=== PATIENT | female | born 1975 | race Caucasian/White ===

== ENCOUNTER 2016-02-26 08:45 | Emergency (ER) | payer BC ==
--- NOTE | 2016-02-26 09:27 | ED.PDOC ---
History of Present Illness - General Chief Complaint: Respiratory Problem Stated Complaint: cough fever sore throat Time Seen by Provider: 02/26/16 08:53 Source: patient, RN notes reviewed, Vital Signs reviewed Exam Limitations: no limitations - History of Present Illness Comments: Had productive cough constant for 5 days with nasal congestion and sorethroat since yesterday several co workers with same symptoms denies chills fever. Took OTC cough cold medications. Timing/Duration: other - 5 days ago Cough Quality/Degree: productive cough - clear mucus Possible Cause: no prior episodes Improving Factors: nothing Worsening Factors: nothing Associated Symptoms: nasal congestion, sore throat Respiratory Risk Factors: exposure to illness Allergies/Adverse Reactions: Allergies NO KNOWN ALLERGY Allergy (Verified 02/26/16 08:59) Home Medications: Ambulatory Orders Citalopram Hydrobromide 20 mg PO DAILY 05/22/15 Cyclobenzaprine HCl 10 mg PO DAILY 05/22/15 Fluticasone Prop 0.05% Nasal [Flonase Nasal [place]] 1 ea INH BID 05/22/15 Ketotifen Fumarate (Ophth) [Alaway] 0.025 % OP BID 05/22/15 Linaclotide [Linzess] 290 mcg PO DAILY 05/22/15 Lisinopril & Hydrochlorothiazi [Lisinopril/Hctz 10-12.5 mg] 1 tab PO DAILY 05/21 Metformin HCl 1,000 mg PO BID 05/22/15 Multiple Vitamin [Multi Vitamin Daily] 1 ea PO DAILY 05/22/15 Naproxen Sodium [Anaprox DS] 550 mg PO BID PRN #14 tab 05/22/15 Olopatadine HCl 2 puff INH BID 05/22/15 Omeprazole 20 mg PO DAILY 05/22/15 Simvastatin 40 mg PO DAILY 05/22/15 Albuterol Inhaler [Ventolin Hfa Inhaler] 108 mcg IN QID PRN #1 inh 02/26/16 Azithromycin [Zithromax Z-Alton] 1 ea PO DAILY #1 pack 02/26/16 Dextromet/Guaifenesin 600/30 T [Mucinex Dm 600/30MG] 1 ea PO BID #30 tab diphenhydrAMINE HCL [Benadryl] 25 mg PO TID #60 cap 02/26/16 Review of Systems - Review of Systems Constitutional: States: no symptoms reported EENTM: States: see HPI, nose congestion Respiratory: States: see HPI, cough Cardiology: States: no symptoms reported Gastrointestinal/Abdominal: States: no symptoms reported Genitourinary: States: no symptoms reported Musculoskeletal: States: no symptoms reported Skin: States: no symptoms reported Neurological: States: no symptoms reported Endocrine: States: no symptoms reported Past Medical History (General) - Patient Medical History Hx Seizures: No Hx Stroke: No Hx Dementia: No Hx Asthma: No Hx of COPD: No Hx Cardiac Disorders: No Hx Congestive Heart Failure: No Hx Pacemaker: No Hx Hypertension: Yes Hx Thyroid Disease: No Hx Diabetes: Yes Hx Gastroesophageal Reflux: Yes Hx Renal Disease: No Hx Cancer: No Hx of HIV: No Hx Hepatitis C: No Hx MRSA: No Surgical History: appendectomy, cholecystectomy, other - breast reduction - Vaccination History Hx Tetanus, Diphtheria Vaccination: No Hx Influenza Vaccination: Yes Hx Pneumococcal Vaccination: No Immunizations Up to Date: No - Social History Hx Tobacco Use: No Hx Chewing Tobacco Use: No Hx Alcohol Use: No Hx Substance Use: No Hx Substance Use Treatment: No Hx Depression: No Hx Physical Abuse: No Hx Emotional Abuse: No Hx Suspected Abuse: No - Activities of Daily Living Patient Lives Alone: No - lives with family - Female History Patient is a Female of Child Bearing Age (10 -59 yrs old): No Patient : No - HYST - Triage Comment ED Triage Comment: hyst Family Medical History - Family History Mother Living Status: Hx Family Congestive Heart Failure: Yes Hx Family Hypertension: Yes Hx Family Diabetes: Yes Hx Family Cancer: Yes Hx Family;Other: COPD Father Living Status: Still Living Hx Family Congestive Heart Failure: Yes Hx Family Hypertension: Yes Hx Cardiac Disease: Yes Hx Family Diabetes: Yes Hx Family;Other: paranoid schizo Physical Exam - Physical Exam General Appearance: Alert, No apparent distress ENT Exam: normal ENT inspection, hearing grossly normal, TMs normal, nasal congestion Neck: non-tender, full range of motion, supple Respiratory: chest non-tender, lungs clear, normal breath sounds, no respiratory distress Cardiovascular/Chest: normal peripheral pulses, regular rate, rhythm, no edema Gastrointestinal/Abdominal: normal bowel sounds, non tender, soft Extremity: normal range of motion, non-tender, normal inspection Neurologic: alert, normal mood/affect, oriented x 3 Skin Exam: normal color, warm/dry Progress - Results/Orders Results/Orders: 02/26/16 09:32 SVN/Updraft Therapy .ONCE 02/27/16 09:00 Updrafts Daily Laboratory Results WBC 12.2 K/mm3 (4.8-10.8) H 02/26/16 09:40 RBC 4.83 M/mm3 (4.20-5.40) 02/26/16 09:40 Hgb 13.9 gm/dL (12.0-16.0) 02/26/16 09:40 Hct 41.7 % (36.0-47.0) 02/26/16 09:40 MCV 86.5 fl (81.0-99.0) 02/26/16 09:40 MCH 28.8 pg (27.0-31.0) 02/26/16 09:40 MCHC 33.3 g/dL (33.0-37.0) 02/26/16 09:40 RDW 13.3 % (11.5-14.5) 02/26/16 09:40 Plt Count 387 K/mm3 (130-400) 02/26/16 09:40 MPV 7.8 fl (7.40-10.4) 02/26/16 09:40 Absolute Neuts (auto) 8.70 K/uL (1.8-6.8) H 02/26/16 09:40 Absolute Lymphs (auto) 2.40 K/uL (1.0-3.4) 02/26/16 09:40 Absolute Monos (auto) 0.70 K/uL (0.2-0.8) 02/26/16 09:40 Absolute Eos (auto) 0.30 K/uL (0.0-0.4) 02/26/16 09:40 Absolute Basos (auto) 0.10 K/uL (0.0-0.1) 02/26/16 09:40 Neutrophils % 70.9 % (42.0-78.0) 02/26/16 09:40 Lymphocytes % 19.9 % (20.0-50.0) L 02/26/16 09:40 Monocytes % 5.9 % (2.0-9.0) 02/26/16 09:40 Eosinophils % 2.5 % (1.0-5.0) 02/26/16 09:40 Basophils % 0.8 % (0.0-2.0) 02/26/16 09:40 - EKG/XRAY/CT XRAY: chest - no acute abnormality Departure - Departure Clinical Impression: Bronchitis, acute Qualifiers: Bronchitis organism: unspecified organism Qualifier Code: (J20.9) Acute bronchitis, unspecified Time of Disposition: 11:57 Disposition: Discharge to Home or Self Care Condition: Good Departure Forms: ED Discharge - Pt. Copy, Patient Portal Self Enrollment Instructions: DI for Acute Bronchitis Prescriptions: diphenhydrAMINE HCL [Benadryl] 25 mg PO TID #60 cap Dextromet/Guaifenesin 600/30 T [Mucinex Dm 600/30MG] 1 ea PO BID #30 tab Albuterol Inhaler [Ventolin Hfa Inhaler] 108 mcg IN QID PRN #1 inh PRN Reason: Cough Azithromycin [Zithromax Z-[place]] 1 ea PO DAILY #1 pack Home Medications: Ambulatory Orders Citalopram Hydrobromide 20 mg PO DAILY 05/22/15 Cyclobenzaprine HCl 10 mg PO DAILY 05/22/15 Fluticasone Prop 0.05% Nasal [Flonase Nasal [place]] 1 ea INH BID 05/22/15 Ketotifen Fumarate (Ophth) [[place]] 0.025 % OP BID 05/22/15 Linaclotide [Linzess] 290 mcg PO DAILY 05/22/15 Lisinopril & Hydrochlorothiazi [Lisinopril/Hctz 10-12.5 mg] 1 tab PO DAILY 05/21 Metformin HCl 1,000 mg PO BID 05/22/15 Multiple Vitamin [Multi Vitamin Daily] 1 ea PO DAILY 05/22/15 Naproxen Sodium [Anaprox DS] 550 mg PO BID PRN #14 tab 05/22/15 Olopatadine HCl 2 puff INH BID 05/22/15 Omeprazole 20 mg PO DAILY 05/22/15 Simvastatin 40 mg PO DAILY 05/22/15 Albuterol Inhaler [Ventolin Hfa Inhaler] 108 mcg IN QID PRN #1 inh 02/26/16 Azithromycin [Zithromax Z-[place]] 1 ea PO DAILY #1 pack 02/26/16 Dextromet/Guaifenesin 600/30 T [Mucinex Dm 600/30MG] 1 ea PO BID #30 tab diphenhydrAMINE HCL [Benadryl] 25 mg PO TID #60 cap 02/26/16 Additional Instructions: PLEASE EXCUSE FROM WORK DUE TO ILLNESS 02/25-06/2016 RETURN TO WORK 03/01/2016 without restrictions
[2016-02-26] MEDS ORDERED: IPRATROPIUM/ALBUTEROL 3 ML VIAL NEB ONE (09:31)
[2016-02-26] MEDS ORDERED: BENZONATATE PERLES 100 MG CAP PO ONE (09:32)
[2016-02-26] MEDS ORDERED: diphenhydrAMINE HCL 25 MG CAP PO ONE (09:33)
--- NOTE | 2016-02-26 10:24 | RAD ---
EXAM DESCRIPTION: X-RAY CHEST- TWO VIEWS CLINICAL HISTORY: Cough COMPARISON: None TECHNIQUE: 2.0 views of the chest FINDINGS: There are no discrete air space infiltrates, pneumothoraces or pleural effusions. The pulmonary vascularity is normal. The cardiomediastinal silhouette is unremarkable. IMPRESSION: There are no acute lung parenchymal findings. Electronically signed by: Isauro Templeton MD 02/26/2016 10:21
[2016-02-26 12:22] VITALS: BP 138/89; TEMP 98.9; O2SAT 99
== END 2016-02-26 12:15 | disposition home or self-care (01) ==
LOC: ER 08:45
DX: J20.9 Acute bronchitis, unspecified (principal); E11.9 Type 2 diabetes mellitus without complications; I10 Essential (primary) hypertension; K21.9 Gastro-esophageal reflux disease without esophagitis; Z79.899 Other long term (current) drug therapy; Z82.49 Family history of ischemic heart disease and other diseases of the circulatory system; Z83.3 Family history of diabetes mellitus; Z80.9 Family history of malignant neoplasm, unspecified; Z83.6 Family history of other diseases of the respiratory system
CPT/HCPCS: 36415; 71020; 85025; 94640; J7620; Q0163

== ENCOUNTER 2016-06-17 20:41 | Emergency (ER) | payer OTHER, BC ==
--- NOTE | 2016-06-17 21:38 | ED.PDOC ---
History of Present Illness - General Chief Complaint: Upper Extremity Injury Stated Complaint: LEFT WRIST INJURY AT WORK Time Seen by Provider: 06/17/16 21:21 Source: patient, RN notes reviewed, Vital Signs reviewed Exam Limitations: no limitations - History of Present Illness Initial Comments: While at work she had a heavy box of laundry detergent fall and hit her volar wrist. She is having wrist pain and numbness of all her fingers. Occurred: just prior to arrival Pain - Upper Extremity: moderate: Wrist, left Method of Injury: direct blow Improving Factors: cold therapy Worsening Factors: movement Allergies/Adverse Reactions: Allergies NO KNOWN ALLERGY Allergy (Verified 02/26/16 08:59) Home Medications: Ambulatory Orders Citalopram Hydrobromide 20 mg PO DAILY 05/22/15 Cyclobenzaprine HCl 10 mg PO DAILY 05/22/15 Fluticasone Prop 0.05% Nasal [Flonase Nasal [place]] 1 ea INH BID 05/22/15 Ketotifen Fumarate (Ophth) [[place]] 0.025 % OP BID 05/22/15 Linaclotide [Linzess] 290 mcg PO DAILY 05/22/15 Lisinopril & Hydrochlorothiazi [Lisinopril/Hctz 10-12.5 mg] 1 tab PO DAILY 05/21 Metformin HCl 1,000 mg PO BID 05/22/15 Multiple Vitamin [Multi Vitamin Daily] 1 ea PO DAILY 05/22/15 Naproxen Sodium [Anaprox DS] 550 mg PO BID PRN #14 tab 05/22/15 Olopatadine HCl 2 puff INH BID 05/22/15 Omeprazole 20 mg PO DAILY 05/22/15 Simvastatin 40 mg PO DAILY 05/22/15 Albuterol Inhaler [Ventolin Hfa Inhaler] 108 mcg IN QID PRN #1 inh 02/26/16 Azithromycin [Zithromax Z-[place]] 1 ea PO DAILY #1 pack 02/26/16 Dextromet/Guaifenesin 600/30 T [Mucinex Dm 600/30MG] 1 ea PO BID #30 tab diphenhydrAMINE HCL [Benadryl] 25 mg PO TID #60 cap 02/26/16 Acetaminophen W/ Codeine [Tylenol W/ CODEINE #3] 1 ea PO Q4HR PRN #15 06/17/16 Review of Systems - Review of Systems Constitutional: States: no symptoms reported Musculoskeletal: States: see HPI, joint pain - L wrist, joint swelling Skin: States: no symptoms reported Neurological: States: numbness, tingling - L fingers Past Medical History (General) - Patient Medical History Hx Seizures: No Hx Stroke: No Hx Dementia: No Hx Asthma: No Hx of COPD: No Hx Cardiac Disorders: No Hx Congestive Heart Failure: No Hx Pacemaker: No Hx Hypertension: Yes Hx Thyroid Disease: No Hx Diabetes: Yes Hx Gastroesophageal Reflux: Yes Hx Renal Disease: No Hx Cancer: No Hx of HIV: No Hx Hepatitis C: No Hx MRSA: No Surgical History: cholecystectomy, Hysterectomy - Vaccination History Hx Tetanus, Diphtheria Vaccination: No Hx Influenza Vaccination: Yes Hx Pneumococcal Vaccination: No - Social History Hx Tobacco Use: No Hx Chewing Tobacco Use: No Hx Alcohol Use: No Hx Substance Use: No Hx Substance Use Treatment: No Hx Depression: No Hx Physical Abuse: No Hx Emotional Abuse: No Hx Suspected Abuse: No - Female History Patient is a Female of Child Bearing Age (10 -59 yrs old): No Patient : No - HYST Family Medical History - Family History Mother Living Status: Hx Family Congestive Heart Failure: Yes Hx Family Hypertension: Yes Hx Family Diabetes: Yes Hx Family Cancer: Yes Hx Family;Other: COPD Father Living Status: Still Living Hx Family Congestive Heart Failure: Yes Hx Family Hypertension: Yes Hx Cardiac Disease: Yes Hx Family Diabetes: Yes Hx Family;Other: paranoid schizo Physical Exam - Physical Exam General Appearance: Alert, Comfortable, No apparent distress, Well Developed, Well Groomed, Well Hydrated, Well Nourished Cardiovascular/Respiratory: normal peripheral pulses - with brisk capillary refill in all fingers. Elbow/Forearm Exam: normal inspection, non-tender, no evidence of injury, normal ROM Wrist Exam: bone tenderness - L volar wrist, limited ROM - due to pain, pain, soft tissue tenderness, swelling Hand Exam: non-tender, no evidence of injury, normal ROM Neuro/Tendon: normal motor functions, normal tendon functions, sensory deficit - decreased sensation all fingers on L hand with Thumb being the worst. Mental Status: alert, oriented x 3 Skin Exam: normal color, warm/dry Comments: Vital Signs - 24 hr 06/17/16 20:59 Temperature 99.0 F Pulse Rate [ 101 H MONITOR] Respiratory 20 Rate Blood Pressure 118/86 [RA] O2 Sat by Pulse 96 Oximetry Progress - Progress Progress: 06/17/16 22:01 Discussed results and symptoms with patient. No fracture, just a contusion with nerve injury. Will splint and have her follow up with PCP in 3-5 days. 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 Copy, Patient Portal Self Enrollment Instructions: DI for Contusion Diet: resume usual diet Activity: no pushing/pulling with affected limb Referrals: Kika Mac FNP [Primary Care Provider] - 1-5 Days Prescriptions: Acetaminophen W/ Codeine [Tylenol W/ CODEINE #3] 1 ea PO Q4HR PRN #15 PRN Reason: Moderate To Severe Pain Home Medications: Ambulatory Orders Citalopram Hydrobromide 20 mg PO DAILY 05/22/15 Cyclobenzaprine HCl 10 mg PO DAILY 05/22/15 Fluticasone Prop 0.05% Nasal [Flonase Nasal [place]] 1 ea INH BID 05/22/15 Ketotifen Fumarate (Ophth) [[place]] 0.025 % OP BID 05/22/15 Linaclotide [Linzess] 290 mcg PO DAILY 05/22/15 Lisinopril & Hydrochlorothiazi [Lisinopril/Hctz 10-12.5 mg] 1 tab PO DAILY 05/21 Metformin HCl 1,000 mg PO BID 05/22/15 Multiple Vitamin [Multi Vitamin Daily] 1 ea PO DAILY 05/22/15 Naproxen Sodium [Anaprox DS] 550 mg PO BID PRN #14 tab 05/22/15 Olopatadine HCl 2 puff INH BID 05/22/15 Omeprazole 20 mg PO DAILY 05/22/15 Simvastatin 40 mg PO DAILY 05/22/15 Albuterol Inhaler [Ventolin Hfa Inhaler] 108 mcg IN QID PRN #1 inh 02/26/16 Azithromycin [Zithromax Z-[place]] 1 ea PO DAILY #1 pack 02/26/16 Dextromet/Guaifenesin 600/30 T [Mucinex Dm 600/30MG] 1 ea PO BID #30 tab diphenhydrAMINE HCL [Benadryl] 25 mg PO TID #60 cap 02/26/16 Acetaminophen W/ Codeine [Tylenol W/ CODEINE #3] 1 ea PO Q4HR PRN #15 06/17/16
--- NOTE | 2016-06-17 21:55 | RAD ---
EXAM: Wrist,Left 3 Views CLINICAL INDICATION: 41-year-old female with pain status post trip flow on volar wrist. TECHNIQUE: Three views LEFT wrist were obtained in AP, lateral and oblique projections COMPARISON: None. FINDINGS: There is no fracture or dislocation. The joint spaces are preserved. No soft tissue abnormalities are seen. IMPRESSION: No acute radiographic abnormality. Electronically signed by: Samantha Bonilla MD 06/17/2016 9:54 PM CDT
[2016-06-17] MEDS: HYDROCOD/APAP 5/325 (ER DISP) #3 TAB PO ONE (22:15)
[2016-06-17] MEDS: HYDROcodone 5MG/APAP 325MG 1 EA TAB PO ONE (22:15)
[2016-06-17 22:24] VITALS: BP 136/84; TEMP 98.4; O2SAT 98
== END 2016-06-17 21:55 | disposition home or self-care (01) ==
LOC: ER 20:41
DX: S60.212A Contusion of left wrist, initial encounter (principal); S64.12XA Injury of median nerve at wrist and hand level of left arm, initial encounter; S64.02XA Injury of ulnar nerve at wrist and hand level of left arm, initial encounter; I10 Essential (primary) hypertension; K21.9 Gastro-esophageal reflux disease without esophagitis; Z79.899 Other long term (current) drug therapy; W20.8XXA Other cause of strike by thrown, projected or falling object, initial encounter; Y99.0 Civilian activity done for income or pay

== ENCOUNTER → 2016-08-09 | Outpatient (CLI) | payer BC | END | disposition home or self-care (01) | LOC: LAB.O 11:26 | PROVIDERS: ATTEND Nurse Practitioner Family | DX: E78.5 Hyperlipidemia, unspecified (principal); I10 Essential (primary) hypertension; E11.9 Type 2 diabetes mellitus without complications ==

== ENCOUNTER 2017-03-17 13:18 | Emergency (ER) | payer SELFPAY ==
--- NOTE | 2017-03-17 13:51 | ED.PDOC ---
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 Associated Symptoms: sore throat Review of Systems - Review of Systems Constitutional: States: see HPI, fever EENTM: States: see HPI, throat pain Respiratory: States: no symptoms reported Cardiology: States: no symptoms reported Gastrointestinal/Abdominal: States: no symptoms reported All other Systems: Reviewed and Negative, No Change from Baseline Past Medical History (General) - Patient Medical History Hx Seizures: No Hx Stroke: No Hx Dementia: No Hx Asthma: No Hx of COPD: No Hx Cardiac Disorders: No Hx Congestive Heart Failure: No Hx Pacemaker: No Hx Hypertension: Yes Hx Thyroid Disease: No Hx Diabetes: Yes Hx Gastroesophageal Reflux: No Hx Renal Disease: No Hx Cancer: No Hx of HIV: No Hx Hepatitis C: No Hx MRSA: No Surgical History: noncontributory, cholecystectomy, other - hysterectomy,breast reduction - Vaccination History Hx Tetanus, Diphtheria Vaccination: No Hx Influenza Vaccination: Yes Hx Pneumococcal Vaccination: No Immunizations Up to Date: Yes - Social History Hx Tobacco Use: No Hx Chewing Tobacco Use: No Hx Alcohol Use: Yes - occasional Hx Substance Use: No Hx Substance Use Treatment: No Hx Depression: No Feels Threatened In Home Enviroment: No Feels Threatened In a Relationship: No Hx Physical Abuse: No Hx Emotional Abuse: No Hx Suspected Abuse: No - Female History Patient is a Female of Child Bearing Age (10 -59 yrs old): Yes Patient : No Family Medical History - Family History Mother Living Status: Hx Family Congestive Heart Failure: Yes Hx Family Hypertension: Yes Hx Family Diabetes: Yes Hx Family Cancer: Yes Hx Family;Other: COPD Father Living Status: Hx Family Congestive Heart Failure: Yes Hx Family Hypertension: Yes Hx Cardiac Disease: Yes Hx Family Diabetes: Yes Hx Family;Other: paranoid schizo Physical Exam - Physical Exam General Appearance: Alert, Comfortable, No apparent distress Eye Exam: bilateral normal ENT Exam: pharyngeal erythema Neck: non-tender, supple, trachea midline Respiratory: lungs clear, normal breath sounds Cardiovascular/Chest: regular rate, rhythm, no murmur Gastrointestinal/Abdominal: non tender, soft, no organomegaly Extremity: no pedal edema, no calf tenderness Neurologic: alert, oriented x 3 Skin Exam: normal color, warm/dry Lymphatic: no adenopathy Progress - Progress Progress: 03/17/17 13:57 Last Vital Signs Temp 100.2 F H 03/17/17 13:34 Pulse 104 H 03/17/17 13:34 Resp 18 03/17/17 13:34 BP 142/96 03/17/17 13:34 Pulse Ox 97 03/17/17 13:34 03/17/17 14:50 Flu a/b and strep throat test-negative Departure - Departure Clinical Impression: Nasopharyngitis acute Time of Disposition: 14:46 Disposition: Discharge to Home or Self Care Condition: Good Departure Forms: ED Discharge - Pt. Copy, Patient Portal Self Enrollment Instructions: DI for Common Cold, Common Cold Referrals: Kika Mac PATIENT SERVICE ASSOCIATE [Primary Care Provider] - 1-2 Weeks Home Medications: Ambulatory Orders Citalopram Hydrobromide 20 mg PO DAILY 05/22/15 Cyclobenzaprine HCl 10 mg PO DAILY 05/22/15 Fluticasone Prop 0.05% Nasal [Flonase Nasal [place]] 1 ea INH BID 05/22/15 Ketotifen Fumarate (Ophth) [[place]] 0.025 % OP BID 05/22/15 Linaclotide [Linzess] 290 mcg PO DAILY 05/22/15 Lisinopril & Hydrochlorothiazi [Lisinopril/Hctz 10-12.5 mg] 1 tab PO DAILY 05/21 Metformin HCl 1,000 mg PO BID 05/22/15 Multiple Vitamin [Multi Vitamin Daily] 1 ea PO DAILY 05/22/15 Naproxen Sodium [Anaprox DS] 550 mg PO BID PRN #14 tab 05/22/15 Olopatadine HCl 2 puff INH BID 05/22/15 Omeprazole 20 mg PO DAILY 05/22/15 Simvastatin 40 mg PO DAILY 05/22/15 Albuterol Inhaler [Ventolin Hfa Inhaler] 108 mcg IN QID PRN #1 inh 02/26/16 Azithromycin [Zithromax Z-[place]] 1 ea PO DAILY #1 pack 02/26/16 Dextromet/Guaifenesin 600/30 T [Mucinex Dm 600/30MG] 1 ea PO BID #30 tab diphenhydrAMINE HCL [Benadryl] 25 mg PO TID #60 cap 02/26/16 Acetaminophen W/ Codeine [Tylenol W/ CODEINE #3] 1 ea PO Q4HR PRN #15 06/17/16 Additional Instructions: ALEVE 1-2 tablet am/pm for pain Drink extra fluids Nasal Saline spray as needed for nasal irrigation
--- NOTE | 2017-03-17 14:20 | RAD ---
EXAM DESCRIPTION: Chest,1 View CLINICAL HISTORY: cough COMPARISON: February 26, 2016 IMPRESSION: Single AP portable upright view of the chest shows cardiac silhouette and pulmonary vasculature to be within normal limits. Lungs are normally aerated and clear. No obvious pleural effusion or pneumothorax is seen. Electronically signed by: Orville Witt MD 03/17/2017 2:19 PM [facility]
[2017-03-17 15:17] VITALS: BP 112/83; TEMP 101; O2SAT 99
== END 2017-03-17 15:16 | disposition home or self-care (01) ==
LOC: ER 13:18
DX: J00 Acute nasopharyngitis [common cold] (principal); I10 Essential (primary) hypertension; E11.9 Type 2 diabetes mellitus without complications

== ENCOUNTER → 2017-06-04 | Outpatient (CLI) | payer OTHER | LOC: YCFC.O 11:19 | PROVIDERS: ATTEND Nurse Practitioner Family | DX: I10 Essential (primary) hypertension (principal); E11.9 Type 2 diabetes mellitus without complications; E78.5 Hyperlipidemia, unspecified ==

== ENCOUNTER → 2018-05-21 | Outpatient (CLI) | payer OTHER | LOC: LAB.O 09:50 | PROVIDERS: ATTEND Nurse Practitioner Family | DX: I10 Essential (primary) hypertension (principal); E11.9 Type 2 diabetes mellitus without complications; E78.5 Hyperlipidemia, unspecified; E53.8 Deficiency of other specified B group vitamins ==

== ENCOUNTER → 2019-01-11 | Outpatient (CLI) | payer OTHER ==
--- NOTE | 2019-01-12 08:21 | RAD ---
EXAM DESCRIPTION: Hip x-ray,Left 2 Views CLINICAL HISTORY: 43 years, Female, PAIN IN LEFT HIP COMPARISON: None TECHNIQUE: AP and frog leg lateral views of the hip FINDINGS: 2 views of the left hip reveal no fracture or dislocation. No lytic bone lesion. Mild degenerative changes in the inferior left SI joint. Calcifications in the pelvis thought to be vascular. IMPRESSION: Negative for fracture or dislocation. Electronically signed by: Jesus Rivera MD 01/12/2019 8:19 AM [facility]
--- NOTE | 2019-01-12 09:35 | RAD ---
EXAM DESCRIPTION: Pelvis: CR/DR/XR CLINICAL HISTORY: PAIN IN LEFT HIP COMPARISON: None Available. TECHNIQUE: One view AP pelvis. FINDINGS: No fracture dislocation. Bone density. Joint Spaces are maintained. A density in the bilateral SI joint spaces. Minimal irregularity of the pubic symphysis. No abnormal radiodense objects in the soft tissues or joint spaces. IMPRESSION: No pelvic bone fracture no hip joint dislocation. 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 Electronically signed by: Kvng Villavicencio MD 01/12/2019 9:33 AM [facility]
== END ==
LOC: RAD 13:18
PROVIDERS: ATTEND Nurse Practitioner
DX: M46.98 Unspecified inflammatory spondylopathy, sacral and sacrococcygeal region (principal)

== ENCOUNTER → 2019-07-20 | Outpatient (CLI) | payer OTHER ==
--- NOTE | 2019-07-21 13:51 | MAM ---
EXAM DESCRIPTION: 3D Screening BILATERAL : Digital Mammography. CLINICAL HISTORY: 44 years Female ANNUAL SCREENING . No complaints. No personal or family history of breast cancer. Menarche age 11. Childbirth age 16. Premenopausal. No HRT. Lifetime risk of developing breast cancer (Tyrer-Cuzick model)(%): 7.0. COMPARISON: 2-D digital screening bilateral mammography June 2014. No prior reports available. TECHNIQUE: Bilateral CC and MLO projection full-field images, digital tomosynthesis mammographic technique. Bilateral digital 2-D full-field MLO images. CAD available for 2-D images. FINDINGS: The breast parenchymal density pattern is: Scattered areas of fibroglandular density. No skin thickening or nipple retraction. Large coarse calcification with surrounding breast tissue density and minimal architectural distortion again noted in the posterior third of the left breast lower outer quadrant most likely related to prior trauma or procedure with fat necrosis. No interval change. Axillary lymph nodes. Decreasing architectural distortion upper outer quadrant posterior third right breast. Solitary microcalcifications. No new focal, stellate mass or density, focal asymmetry , and no suspicious microcalcifications . IMPRESSION: Benign exam. BIRAD CATEGORY: 2 BENIGN FINDINGS. RECOMMENDATIONS: FOLLOW UP: Routine digital bilateral mammographic screening, one year interval from June 2019. Written communication explaining the IMPRESSION and follow-up, will be mailed to the patient and referring health care provider. According to the [employer], yearly mammograms are recommended starting at age 40 and continuing as long as a woman is in good health. Any breast change noted on a breast self-exam should be reported promptly to the patient's healthcare provider. Breast MRI is recommended for women with an approximately 20-25% or greater lifetime risk of breast cancer, including women with a strong family history of breast or ovarian cancer and women who have been treated for Hodgkin's disease. A negative mammographic report should not delay tissue diagnosis in patients with significant clinical history or physical findings. Extremely dense breast tissue limits the sensitivity of digital mammography. Electronically signed by: Kvng Villavicencio MD 07/21/2019 1:49 PM CDT
== END ==
LOC: MAMMO 11:11
PROVIDERS: ATTEND Family Medicine
DX: Z12.31 Encounter for screening mammogram for malignant neoplasm of breast (principal)

== ENCOUNTER → 2019-09-14 | Outpatient (CLI) | payer OTHER | LOC: YCFC.O 12:55 | PROVIDERS: ATTEND Family Medicine | DX: E11.9 Type 2 diabetes mellitus without complications (principal); I10 Essential (primary) hypertension; E78.5 Hyperlipidemia, unspecified; E53.8 Deficiency of other specified B group vitamins ==

== ENCOUNTER → 2019-10-06 | Outpatient (CLI) | payer OTHER | LOC: YCFC.O 10:42 | PROVIDERS: ATTEND Family Medicine | DX: L98.9 Disorder of the skin and subcutaneous tissue, unspecified (principal) ==

== ENCOUNTER → 2019-11-05 | Outpatient (CLI) | payer OTHER ==
--- NOTE | 2019-11-06 07:13 | RAD ---
EXAM DESCRIPTION: Abdomen Lat/Decubitus CLINICAL HISTORY: 44 years Female, ABDOMINAL BLOATING COMPARISON: None. Findings: Four view(s)/radiograph(s) Location: abdomen Nonobstructive bowel gas pattern. No suspicious calcification. No acute osseous abnormalities. Soft tissues are unremarkable. Large stool volume. No free air. Cholecystectomy. Visualized lung bases are clear. IMPRESSION: Nonobstructive bowel gas pattern. Electronically signed by: Jerman Best MD 11/06/2019 6:53 AM CDT
== END ==
LOC: RAD 08:58
PROVIDERS: ATTEND Family Medicine
DX: R14.0 Abdominal distension (gaseous) (principal)

== ENCOUNTER → 2020-03-13 | Outpatient (CLI) | payer OTHER ==
--- NOTE | 2020-03-13 13:04 | RAD ---
EXAM: Knee,Left Complete INDICATION: 45 years Female, EFFUSION, UNSPECIFIED KNEE COMPARISON: None available FINDINGS: 4 views of the left knee were performed. No fracture or dislocation. No destructive osseous lesion. Mild degenerative change in the left knee with joint space narrowing and mild subchondral sclerosis. No apparent subchondral cystic change. No periosteal reaction or osseous erosions. Moderate suprapatellar joint effusion. No other gross soft tissue abnormality is identified. IMPRESSION: Mild degenerative change in the left knee with moderate suprapatellar joint effusion. Electronically signed by: Michelle Garnett MD 03/13/2020 1:03 PM [facility]
== END ==
LOC: YCFC.O 08:29
PROVIDERS: ATTEND Family Medicine
DX: M25.469 Effusion, unspecified knee (principal); M17.12 Unilateral primary osteoarthritis, left knee

== ENCOUNTER 2020-03-30 07:45 | Day surgery (SDC) | payer OTHER ==
[~2020-03-30 07:45] MED LIST: LACTATED RINGERS 1,000 ML ONE; LIDOCAINE 1% 10 ML VIAL INJ ONE; PROPOFOL 200 MG/20 ML VIAL IV ONE
[2020-03-30] MEDS ORDERED: LACTATED RINGERS 1,000 ML IVS ONE (08:05)
[2020-03-30 09:59] VITALS: BP 118/72; TEMP 97.9; O2SAT 99
--- NOTE | 2020-04-14 13:32 | OP ---
DATE OF PROCEDURE: 03/30/20 PREOPERATIVE DIAGNOSIS: 1. Family history of colon cancer. POSTOPERATIVE DIAGNOSIS: 1. Single polyp in the cecum. PROCEDURE: 1. Colonoscopy. SURGEON: Anand Lee MD PROCEDURE: After informed consent, in lateral position, general anesthesia was induced. Digital rectal exam was normal. The colonoscope was inserted and then passed with minimal difficulty to the cecum as identified by landmarks. There was a single polyp in the cecum. This was approximately 2 mm polyp. It was completely excised with no evidence of bleeding. The remainder of the exam was normal with no evidence of colitis or other polyps noted. The patient tolerated the procedure well and was awakened and taken to Recovery to be discharged. #[id number] MTDD
== END 2020-03-30 09:55 | disposition home or self-care (01) ==
LOC: AMB 07:45
PROVIDERS: ATTEND Surgery
DX: Z12.11 Encounter for screening for malignant neoplasm of colon (principal); D12.0 Benign neoplasm of cecum; K58.1 Irritable bowel syndrome with constipation; E11.9 Type 2 diabetes mellitus without complications; F32.9 Major depressive disorder, single episode, unspecified; E78.00 Pure hypercholesterolemia, unspecified; I10 Essential (primary) hypertension; Z80.0 Family history of malignant neoplasm of digestive organs; Z90.710 Acquired absence of both cervix and uterus; Z79.84 Long term (current) use of oral hypoglycemic drugs; Z79.899 Other long term (current) drug therapy
CPT/HCPCS: 00812; 36416; 45380; 82948; J3490; J7120